=== PATIENT | female | born 1990 | race Caucasian/White ===

== ENCOUNTER 2016-08-30 11:12 | Emergency (ER) | payer SELFPAY ==
--- NOTE | 2016-08-30 11:31 | ER Document Report ---
ED Medical Screen (RME) - General Chief Complaint: Abdominal Pain Stated Complaint: NAUSEA,VOMITING Time Seen by Provider: 08/30/16 11:29 Notes: 26-year-old female presents with abdominal pain. She states she has been constipated for approximately 2 weeks. She states she has tried multiple over- the-counter remedies with no relief. She states she is only had some small bowel movements with blood in it. She states she has not had any problems with urination. She has also had diffuse abdominal pain for the last 3 days. It is been intermittent and crampy. She denies being currently . She has had multiple previous abdominal surgeries including an appendectomy. No history of bowel obstructions. She went to an urgent care approximately 9 days ago and was started on Bactrim for urinary tract infection. She states that symptoms have only progressed. Has nausea and decreased appetite. TRAVEL OUTSIDE OF THE [place] IN LAST 30 DAYS: No - Related Data Allergies/Adverse Reactions: No Known Allergies Allergy (Verified 08/30/16 11:26) Past Medical History Renal/ Medical History: Denies: Hx Peritoneal Dialysis Physical Exam - Vital signs Vitals: Temp Pulse Resp BP Pulse Ox 98.1 F 97 14 130/88 H 100 08/30/16 11:17 08/30/16 11:17 08/30/16 11:17 08/30/16 11:17 08/30/16 11:17 Course - Vital Signs Vital signs: Temp Pulse Resp BP Pulse Ox 98.1 F 97 14 130/88 H 100 08/30/16 11:17 08/30/16 11:17 08/30/16 11:17 08/30/16 11:17 08/30/16 11:17
[2016-08-30 12:03] LABS: ABSOLUTE EOSINOPHILS # (AUTO) 0.1 10^3/uL (0.0-0.6); ABSOLUTE LYMPHOCYTES (AUTO) 1.6 10^3/uL (0.5-4.7); ABSOLUTE MONOCYTES (AUTO) 0.8 10^3/uL (0.1-1.4); ABSOLUTE NEUT (AUTO) 3.2 10^3/uL (1.7-8.2); BASOPHILS % (AUTO) 0.5 % (0-2); EOSINOPHILS % (AUTO) 1.5 % (0-6); HEMATOCRIT 40.9 % (36.0-47.0); HEMOGLOBIN 13.8 g/dL (12.0-15.5); HGB HCT DIFFERENCE 0.5; MEAN CORPUSCULAR HEMOGLOBIN 31.1 pg (27.0-33.4); MEAN CORPUSCULAR HGB CONC 33.7 g/dL (32.0-36.0); MEAN CORPUSCULAR VOLUME 92 fl (80-97); MONOCYTES % (AUTO) 14.1 % (3-13); RED BLOOD COUNT 4.43 10^6/uL (3.72-5.28); RED CELL DISTRIBUTION WIDTH 13.6 % (11.5-14.0); SEGMENTED NEUTROPHILS % (AUTO) 55.9 % (42-78); WHITE BLOOD COUNT 5.8 10^3/uL (4.0-10.5)
[2016-08-30 12:06] LABS: APPEARANCE,URINE SLIGHTLY-CLOUDY; BILIRUBIN,URINE NEGATIVE (NEGATIVE); GLUCOSE, URINE NEGATIVE (NEGATIVE); KETONES,URINE NEGATIVE (NEGATIVE); LEUKOCYTE ESTERASE,URINE LARGE (NEGATIVE); NITRITE,URINE NEGATIVE (NEGATIVE); PROTEIN,URINE NEGATIVE (NEGATIVE); URINE SPECIFIC GRAVITY 1.016; UROBILINOGEN,URINE NEGATIVE mg/dL (<2.0)
[2016-08-30 12:20] LABS: ALANINE AMINOTRANSFERASE 28 U/L (9-52); ALBUMIN 4.6 g/dL (3.5-5.0); ALKALINE PHOSPHATASE 56 U/L (38-126); ANION GAP 12 (5-19); ASPARTATE AMINO TRANSFERASE 25 U/L (14-36); BILIRUBIN,DIRECT 0.2 mg/dL (0.0-0.4); BILIRUBIN,TOTAL 1.4 mg/dL (0.2-1.3); BLOOD UREA NITROGEN 11 mg/dL (7-20); CALCIUM 9.3 mg/dL (8.4-10.2); CARBON DIOXIDE 25 mmol/L (22-30); CHLORIDE 100 mmol/L (98-107); CREATININE RESULT 0.75 mg/dL (0.52-1.25); GLUCOSE 82 mg/dL (75-110); LIPASE 39.5 U/L (23-300); POTASSIUM 4.6 mmol/L (3.6-5.0); SODIUM 137.1 mmol/L (137-145); TOTAL PROTEIN 7.8 g/dL (6.3-8.2)
[2016-08-30] MEDS ORDERED: CEFTRIAXONE RTU 1 GM/D5W 50 ML IV ONE (12:29)
[2016-08-30] MEDS ORDERED: NORMAL SALINE 1000 ML 1,000 ML IV ONE (12:30)
--- NOTE | 2016-08-30 12:41 | ER Document Report ---
ED GI/ - General Chief Complaint: Abdominal Pain Stated Complaint: NAUSEA,VOMITING Time Seen by Provider: 08/30/16 11:29 Information source: Patient Notes: 26-year-old female who presents today with the onset around 2 weeks ago of some intermittent left flank and left lower quadrant abdominal pain with some dysuria. Patient has a history of urinary tract infections and kidney stones. She states some intermittent nausea, vomiting, without diarrhea. She actually states she has been constipated. She states she has had some intermittent hard bowel movements with a small amount of blood in the stool. She denies any rectal pain. She denies any vaginal discharge, missed menstrual periods, or fevers. She denies any aggravating or relieving factors to this left flank and left lower quadrant abdominal pain TRAVEL OUTSIDE OF THE [place] IN LAST 30 DAYS: No - HPI Patient complains to provider of: Other - See above Onset: Other - See above Timing/Duration: Gradual Quality of pain: Other - See above Severity at maximum: Moderate Severity in ED: Mild, Almost gone Pain Level: 1 Location: Other - See above Vaginal bleeding (Compared to normal period): None Menstrual period history: denies: Abnormal Sexual history: Active Associated symptoms: Other - See above Exacerbated by: Denies Relieved by: Denies Similar symptoms previously: Yes Recently seen / treated by doctor: No - Related Data Allergies/Adverse Reactions: No Known Allergies Allergy (Verified 08/30/16 11:26) Past Medical History - General Information source: Patient - Social History Smoking Status: Unknown if Ever Smoked Cigarette use (# per day): No Chew tobacco use (# tins/day): No Smoking Education Provided: No Frequency of alcohol use: None Drug Abuse: None Family History: Reviewed & Not Pertinent Patient has suicidal ideation: No Patient has homicidal ideation: No Renal/ Medical History: Reports: Hx Kidney Stones. Denies: Hx Peritoneal Dialysis Past Surgical History: Reports: Hx Appendectomy, Hx Breast Surgery, Hx Section, Hx Tubal Ligation Review of Systems - Review of Systems Constitutional: denies: Fever EENT: denies: Eye discharge, Nose discharge Cardiovascular: denies: Chest pain, Palpitations Respiratory: denies: Short of breath Gastrointestinal: denies: Vomiting Genitourinary: denies: Dysuria Musculoskeletal: denies: Leg swelling Skin: Other - no hives. denies: Rash Neurological/Psychological: Other - no slurred speech -: Yes All other systems reviewed and negative Physical Exam - Vital signs Vitals: Temp Pulse Resp BP Pulse Ox 98.1 F 97 14 130/88 H 100 08/30/16 11:17 08/30/16 11:17 08/30/16 11:17 08/30/16 11:17 08/30/16 11:17 Notes: Reviewed vital signs and nursing note as charted by RN. CONSTITUTIONAL: Alert and oriented and responds appropriately to questions. Well -appearing; well-nourished HEAD: Normocephalic; atraumatic EYES: Sclerae non-icteric ENT: Normal nose; no rhinorrhea; moist mucous membranes; pharynx without lesions noted NECK: Supple without meningismus; non-tender; no cervical lymphadenopathy, no masses CARD: Regular rate and rhythm; no murmurs, no clicks, no rubs, no gallops; symmetric distal pulses RESP: Normal chest excursion without splinting or tachypnea; breath sounds clear and equal bilaterally; no wheezes, no rhonchi, no rales ABD/GI: Normal bowel sounds; non-distended; soft, tender to palpation without rebound or guarding of the left lower quadrant BACK: The back appears normal and is non-tender to palpation, left CVA tenderness without swelling or erythema noted /GI: Patient with reimbursement specialist present has no perirectal lesions present. No gross blood. No stool in the rectal vault. Hemoccult pending EXT: Normal ROM in all joints; non-tender to palpation; no cyanosis, no effusions, no edema SKIN: Normal color for age and race; warm; dry; good turgor; capillary refill < 2 seconds; no acute lesions noted NEURO: Moves all extremities equally; Motor and sensory function intact PSYCH: The patient's mood and manner are appropriate. Grooming and personal hygiene are appropriate. Course - Re-evaluation Re-evalutation: 08/30/16 12:37 Given the above history and physical examination, we will order urinalysis, test, Hemoccult blood, CBC, and renal colic protocol CT scan. I would like to evaluate for possible urinary tract infection, GI bleed, kidney stone, infected kidney stone, or other acute abdominal pathology. 08/30/16 14:01 Patient's pain is improved. CT scan of the abdomen and pelvis as recorded. Urine analysis showing an obvious urinary tract infection. Rocephin has been provided. 08/30/16 15:14 Pelvic examination shows no internal or external lesions, no cervical motion tenderness. No adnexal masses or tenderness. 08/30/16 15:41 Pelvic examination laboratories as recorded. I have provided Diflucan. Patient will be discharged home at this time with strict return precautions, antibiotics, and follow-up instructions. Patient's pain is improved. - Vital Signs Vital signs: Temp Pulse Resp BP Pulse Ox 98.1 F 97 14 130/88 H 100 08/30/16 11:17 08/30/16 11:17 08/30/16 11:17 08/30/16 11:17 08/30/16 11:17 - Laboratory Result Diagrams: 08/30/16 11:35 08/30/16 11:35 Laboratory results interpreted by me: 08/30/16 08/30/16 08/30/16 11:35 11:35 11:35 Monocytes % 14.1 H Total Bilirubin 1.4 H Ur Leukocyte Esterase LARGE H Discharge - Discharge Clinical Impression: Pyelonephritis, Yeast infection Condition: Good Disposition: HOME, SELF-CARE Additional Instructions: Come back immediately with any increased pain, fevers, persistent vomiting, or any other acute problems. Please make sure that you follow-up regarding repeat urine analysis and rechecked by the primary doctor. Prescriptions: Hydrocodone/Acetaminophen [[place] 5-325 Tablet] 1 each PO Q6 PRN #12 tablet PRN Reason: For Pain Ondansetron [Zofran Odt 4 mg Tablet] 1 tab PO Q6H #15 tab.rapdis Sulfamethoxazole/Trimethoprim [Bactrim Ds Tablet] 1 each PO BID #20 tablet
--- NOTE | 2016-08-30 13:17 | RADIOLOGY REPORT (SQ) ---
EXAM DESCRIPTION: CT LTD RENAL STONE PROTOCOL ON COMPLETED DATE/TIME: 08/30/2016 1:02 pm REASON FOR STUDY: ROOM 16; left flank and LLQ pain/UTI COMPARISON: None. TECHNIQUE: CT scan of the abdomen and pelvis performed without intravenous or oral contrast. Images reviewed with lung, soft tissue, and bone windows. Reconstructed coronal and sagittal MPR images revi ewed. All images stored on PACS. All CT scanners at this facility use dose modulation, iterative reconstruction, and/or weight based d osing when appropriate to reduce radiation dose to as low as reasonably achievable (ALARA). [facility]: Dose Right [facility]: CareDose [facility]: Dose Right [facility]: Teradose 4D [facility]: Smart [facility] RADIATION DOSE: Up-to-date CT equipment and radiation dose reduction techniques were employed. CTDIv ol: 5.0 mGy. DLP: 257 mGy-cm.mGy. LIMITATIONS: None. FINDINGS: LOWER CHEST: No significant findings. No nodules or infiltrates. NON-CONTRASTED LIVER, SPLEEN, ADRENALS: Evaluation limited by lack of IV contrast. No identified sign ificant masses. PANCREAS: No masses. No peripancreatic inflammatory changes. GALLBLADDER: No identified stones by CT criteria. No inflammatory changes to suggest cholecystitis. RIGHT KIDNEY AND URETER: No suspicious masses. Assessment limited by lack of IV contrast. No signif icant calcifications. No hydronephrosis or hydroureter. LEFT KIDNEY AND URETER: No suspicious masses. Assessment limited by lack of IV contrast. No signifi cant calcifications. No hydronephrosis or hydroureter. AORTA AND RETROPERITONEUM: No aneurysm. No retroperitoneal masses or adenopathy. BOWEL AND PERITONEAL CAVITY: No obvious masses or inflammatory changes. No free fluid. A moderate am ount a gas and fecal material is identified throughout the colon. APPENDIX: Status post appendectomy PELVIS, BLADDER, AND ABDOMINAL WALL:No abnormal masses. No free fluid. Bladder normal. BONES: No significant findings. OTHER: No other significant finding. IMPRESSION: NO SIGNIFICANT OR ACUTE PROCESS IN THE ABDOMEN OR PELVIS. TECHNICAL DOCUMENTATION: JOB ID: [id number] Quality ID # [id number]: Final reports with documentation of one or more dose reduction techniques (e.g., Au tomated exposure control, adjustment of the mA and/or kV according to patient size, use of iterative reconstruction technique) 2010 [employer]- All Rights Reserved
[2016-08-30] MEDS ORDERED: MORPHINE SULFATE 10 MG/ML INJ IV ONE (14:32)
[2016-08-30] MEDS ORDERED: FLUCONAZOLE 100 MG TABLET PO ONE (15:41)
[2016-08-30 16:43] VITALS: BP 110/68
[2016-08-30 16:44] LABS: CHLAM PCR NOT DETECTED (NOT DETECT)
== END 2016-08-30 16:42 | disposition home or self-care (01) ==
LOC: ER 11:12
DX: N12 Tubulo-interstitial nephritis, not specified as acute or chronic (principal); B37.9 Candidiasis, unspecified; R11.2 Nausea with vomiting, unspecified; R10.32 Left lower quadrant pain
CPT/HCPCS: 99284; 96375; 96365; 36415; 87086; 87210; 83690; 85025; 82272; 81025; 87088; 80053; 81001; 87186; 87491; 87591; 76380; J2270; J7030; J0696

== ENCOUNTER 2016-12-24 15:12 | Emergency (ER) | payer OTHER ==
[2016-12-24 15:20] VITALS: BP 129/83
--- NOTE | 2016-12-24 15:51 | ER Document Report ---
HPI - HPI Pain Level: 0 Notes: Patient with a history of asthma presents to the ED for a prescription for her albuterol inhaler. Patient [place] from out of town and uses her inhaler every other day and will not be going home for another week. Patient states that she does not have any acute symptoms of an asthma exacerbation, and only came to the ED for a prescription for her an albuterol inhaler. Denies any headache, fever, head injury, neck pain, changes in vision/speech/mentation/hearing, URI, sore throat, chest pain, palpitations, syncope, cough, shortness of breath, wheeze, dyspnea, abdominal pain, nausea/vomiting/diarrhea, or rash. - ROS Notes: REVIEW OF SYSTEMS: CONSTITUTIONAL : Denies fever, chills, or sweats. Denies recent illness. EENT: Denies eye, ear, throat, or mouth pain or symptoms. Denies nasal or sinus congestion or discharge. Denies throat, tongue, or mouth swelling or difficulty swallowing. CARDIOVASCULAR: Denies chest pain. Denies palpitations or racing or irregular heart beat. Denies ankle edema. RESPIRATORY: Denies cough, cold, or chest congestion. Denies shortness of breath, difficulty breathing, or wheezing. GASTROINTESTINAL: Denies abdominal pain or distention. Denies nausea, vomiting , or diarrhea. Denies blood in vomitus, stools, or per rectum. Denies black, tarry stools. Denies constipation. GENITOURINARY: Denies difficulty urinating, painful urination, burning, frequency, blood in urine, or discharge. MUSCULOSKELETAL: Denies back or neck pain or stiffness. Denies joint pain or swelling. SKIN: Denies rash, lesions or sores. NEUROLOGICAL: Denies confusion or altered mental status. Denies passing out or loss of consciousness. Denies dizziness or lightheadedness. Denies headache. Denies weakness or paralysis or loss of use of either side. Denies problems with gait or speech. Denies sensory loss, numbness, or tingling. ALL OTHER SYSTEMS REVIEWED AND NEGATIVE. Dictation was performed using [employer] recognition software - DERM Skin Color: Normal Past Medical History - Social History Smoking Status: Never Smoker Family History: Reviewed & Not Pertinent Patient has suicidal ideation: No Patient has homicidal ideation: No Renal/ Medical History: Reports: Hx Kidney Stones. Denies: Hx Peritoneal Dialysis Past Surgical History: Reports: Hx Appendectomy, Hx Breast Surgery, Hx Section, Hx Tubal Ligation Vertical Provider Document - CONSTITUTIONAL Agree With Documented VS: Yes Notes: PHYSICAL EXAMINATION: GENERAL: Well-appearing, well-nourished and in no acute distress. A&Ox4 HEAD: Atraumatic, normocephalic. EYES: Pupils equal round and reactive to ligh you are t, extraocular movements intact, sclera anicteric, conjunctiva are normal. ENT: Nares patent and without discharge. oropharynx clear without exudates. No tonsilar hypertrophy or erythema. Moist mucous membranes. NECK: Normal range of motion, supple without lymphadenopathy LUNGS: Breath sounds clear to auscultation bilaterally and equal. No wheezes rales or rhonchi. HEART: Regular rate and rhythm without murmurs, rubs, gallops. SKIN: Warm, Dry, normal turgor, no rashes or lesions noted. - INFECTION CONTROL TRAVEL OUTSIDE OF THE [place] IN LAST 30 DAYS: No - RESPIRATORY O2 Sat by Pulse Oximetry: 99 Course - Re-evaluation Re-evalutation: 12/24/16 15:50 Patient is an afebrile, well-hydrated, 26-year-old female who presents the ED for an albuterol inhaler prescription and nothing more. Vitals are stable. PE is otherwise unremarkable. Low suspicion for any systemic emergent condition at this time. Patient is currently asymptomatic. Prescription will be given. Recheck with your PCM next week. Return to the ED with any worsening/ concerning symptoms otherwise as reviewed in discharge. Patient is in agreement. - Vital Signs Vital signs: Temp Pulse Resp BP Pulse Ox 98.6 F 79 16 129/83 H 99 12/24/16 15:18 12/24/16 15:18 12/24/16 15:18 12/24/16 15:18 12/24/16 15:18 Discharge - Discharge Clinical Impression: Medication refill Condition: Stable Disposition: HOME, SELF-CARE Instructions: Bronchodilators ([facility]) Additional Instructions: Use inhaler as directed Monitor for any worsening symptoms or development of symptoms Recheck with your PCM in 1 week Return to the ED with any worsening symptoms and/or development of fever, headache, chest pain, palpitations, syncope, shortness of breath, trouble breathing, wheezing, abdominal pain, n/v/d, or other worsening symptoms that are concerning to you. Prescriptions: Albuterol Sulfate [Proair HFA Inhalation Aerosol 8.5 gm MDI] 2 puff IH Q4H PRN # 1 mdi PRN Reason: Forms: Elevated Blood Pressure Referrals: PULMONOLOGY [Provider Group] - Follow up as needed
== END 2016-12-24 16:00 | disposition home or self-care (01) ==
LOC: ER 15:12
DX: Z76.0 Encounter for issue of repeat prescription (principal); J45.909 Unspecified asthma, uncomplicated
CPT/HCPCS: 99281